=== PATIENT | female | born 2005 | race Caucasian/White ===

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

== ENCOUNTER → 2023-03-27 | Outpatient (CLI) | payer OTHER ==
[~2023-03-27] MED LIST: ISOVUE-370 76% 100ML VIAL As Ordered ONE
== END ==
LOC: M RAD 09:00
PROVIDERS: ATTEND Surgery Vascular Surgery
DX: I82.413 Acute embolism and thrombosis of femoral vein, bilateral (principal); I82.422 Acute embolism and thrombosis of left iliac vein
CPT/HCPCS: 75635; Q9967